=== PATIENT | male | born 1990 | race Asian ===

== ENCOUNTER → 2016-07-27 | Outpatient (REF) | LOC: WSOH 08:56 | DX: Z02.89 Encounter for other administrative examinations (principal) ==

== ENCOUNTER 2023-08-15 13:44 | Emergency (ER) | payer BC ==
[~2023-08-15] VITALS: Ht 170.2 cm; Wt 72.3 kg
[2023-08-15 13:49] VITALS: TEMP 97.4
[2023-08-15] MEDS ORDERED: NS 1,000 ML IV ONE (14:30)
[2023-08-15 15:00] VITALS: O2SAT 99
[2023-08-15 15:11] LABS: BASO # 0.1 K/mm3 (0.0-0.2); BASO % 0.6 % (0.0-2.0); EOS # 0.6 K/mm3 (0.0-0.7); EOS % 5.6 % (0.0-4.0); GRAN # 5.1 K/mm3 (1.4-6.5); GRAN % 50.1 % (42.2-75.2); HEMATOCRIT 47.5 % (42.0-52.0); LYMPH # 3.6 K/mm3 (1.2-3.4); LYMPH % 35.4 % (20.0-51.0); MEAN CELL VOLUME 83 fl (80.0-100.0); MEAN CORPUSCULAR HEMOGLOBIN 30 pg (27-31); MEAN CORPUSCULAR HGB CONC 36 g/dl (33.0-37.0); MEAN PLATELET VOLUME 11.5 fl (7.4-10.4); MONO # 0.8 K/mm3 (0.1-0.6); MONO % 7.9 % (1.7-9.3); PLATELET COUNT 181 K/mm3 (130-400); REDCELL DISTRIBUTION WIDTH-CV 13.2 % (11.5-14.5)
[2023-08-15 15:36] LABS: ALANINE AMINOTRANSFERASE 69 U/L (0-55); ALBUMIN 4.5 gm/dL (3.5-5.0); ALKALINE PHOSPHATASE 87 U/L (40-150); ANION GAP 11 mmol/L (7-16); AST,SGOT 34 U/L (5-34); BILIRUBIN,TOTAL 0.7 mg/dL (0.2-1.2); BLOOD UREA NITROGEN 13 mg/dL (9-21); CALCIUM 10.3 mg/dL (8.4-10.2); CARBON DIOXIDE 24 mmol/L (22-29); CHLORIDE 102 mmol/L (98-107); CREATININE, serum 1.32 mg/dL (0.72-1.25); GLUCOSE 106 mg/dL (70-99); MAGNESIUM 1.7 mg/dL (1.6-2.6); POTASSIUM 4.1 mmol/L (3.5-4.5); SODIUM 137 mmol/L (136-145)
[2023-08-15 15:57] LABS: TSH w REFLEX 3.142 uIU/mL (0.350-4.940)
[2023-08-15 15:58] LABS: TROPONIN-I < 0.010 ng/mL (0.00-0.033)
[2023-08-15 16:45] VITALS: BP 141/74; PULSE 75
== END 2023-08-15 16:50 | disposition home or self-care (01) ==
LOC: COL.ER 13:44
PROVIDERS: Family Medicine
DX: E86.0 Dehydration (principal)
CPT/HCPCS: J7030